=== PATIENT | female | born 1970 | race African-American/Black ===

== ENCOUNTER 2018-02-21 12:24 | Emergency (ER) | payer BC ==
[~2018-02-21] VITALS: Ht 167.6 cm; Wt 90.7 kg
[2018-02-21] MEDS ORDERED: NORCO 5-325 TA1 EAC1 PO (13:28)
[2018-02-21 13:42] VITALS: BP 158/86
== END 2018-02-21 13:44 | disposition home or self-care (01) ==
LOC: M.ERS 12:24
DX: S61.210A Laceration without foreign body of right index finger without damage to nail, initial encounter (principal); I10 Essential (primary) hypertension; W26.8XXA Contact with other sharp object(s), not elsewhere classified, initial encounter; Y93.E9 Activity, other interior property and clothing maintenance; Y92.89 Other specified places as the place of occurrence of the external cause; Y99.8 Other external cause status

== ENCOUNTER 2018-03-03 10:04 | Emergency (ER) | payer BC ==
[~2018-03-03] VITALS: Ht 152.4 cm; Wt 97.5 kg
[~2018-03-03 10:04] MED LIST: NORCO 5-325 TA1 EAC1 PO
[2018-03-03 10:11] VITALS: BP 156/89
== END 2018-03-03 10:27 | disposition home or self-care (01) ==
LOC: M.ERS 10:04
DX: S61.210D Laceration without foreign body of right index finger without damage to nail, subsequent encounter (principal); I10 Essential (primary) hypertension; Z90.49 Acquired absence of other specified parts of digestive tract; X58.XXXD Exposure to other specified factors, subsequent encounter

== ENCOUNTER 2021-09-27 17:19 | Emergency (ER) | payer BC ==
[~2021-09-27] VITALS: Ht 152.4 cm; Wt 96.6 kg
[2021-09-27] MEDS ORDERED: COZAAR 25 MG TA25 M1 PO (17:37)
[2021-09-27] MEDS ORDERED: NORVASC 2.5 MG2.5 M1 PO (17:38)
[2021-09-27] MEDS ORDERED: HYDROCODON-ACE1 EAC7 PO (18:44)
[2021-09-27 18:53] VITALS: BP 147/90
== END 2021-09-27 18:54 | disposition home or self-care (01) ==
LOC: M.ERS 17:19
DX: S06.0X9A Concussion with loss of consciousness of unspecified duration, initial encounter (principal); S00.03XA Contusion of scalp, initial encounter; I10 Essential (primary) hypertension; Z90.49 Acquired absence of other specified parts of digestive tract; Z98.51 Tubal ligation status; Z79.899 Other long term (current) drug therapy; W21.03XA Struck by baseball, initial encounter; Y93.64 Activity, baseball; Y92.320 Baseball field as the place of occurrence of the external cause; Y99.8 Other external cause status